=== PATIENT | female | born 1985 ===

== ENCOUNTER 2019-10-19 11:08 | Outpatient (CLI) | payer BC, OTHER ==
[~2019-10-19] VITALS: Ht 160 cm; Wt 100.0 kg
[2019-10-19 11:57] LABS: BASOPHILS # (AUTO) 0.01 x10^3/uL (0-0.1); BASOPHILS % (AUTO) 0 % (0-1); EOSINOPHILS # (AUTO) 0.06 x10^3/uL (0-0.4); EOSINOPHILS % (AUTO) 1 % (1-7); LYMPHOCYTES # (AUTO) 1.66 x10^3/uL (1-3.4); LYMPHOCYTES % (AUTO) 18 % (22-44); MD NO; MEAN CORPUSCULAR HEMOGLOBIN 29.4 pg (27.0-34.8); MEAN CORPUSCULAR VOLUME 89.1 fL (80-100); MONOCYTES # (AUTO) 0.69 x10^3/uL (0.2-0.8); MONOCYTES % (AUTO) 8 % (2-9); NEUTROPHILS # (AUTO) 6.84 x10^3/uL (1.8-6.8); NEUTROPHILS % (AUTO) 74 % (42-75); PLATELET COUNT 242 x10^3/uL (130-400); RED BLOOD COUNT 4.26 x10^6/uL (3.82-5.3); RED CELL DISTRIBUTION WIDTH 17.3 % (9.6-15.2)
[2019-10-19 12:08] LABS: ALANINE AMINOTRANSFERASE 23 U/L (12-78); ALBUMIN 2.3 g/dL (3.4-5.0); ANION GAP 8 mmol/L (5-15); CALCIUM 8.7 mg/dL (8.5-10.1); CHLORIDE 108 mmol/L (98-107); CREATININE 0.63 mg/dL (0.55-1.02)
[2019-10-19 12:10] LABS: ALKALINE PHOSPHATASE 182 U/L (45-117); BILIRUBIN,TOTAL 0.4 mg/dL (0.2-1.0); TOTAL PROTEIN 6.5 g/dL (6.4-8.2)
[2019-10-19 12:29] LABS: MICROSCOPIC INDICATED
[2019-10-19 12:31] LABS: CREATININE,URINE RANDOM 27.8 mg/dL
== END 2019-10-19 13:22 | disposition home or self-care (01) ==
LOC: LDOP 11:08
PROVIDERS: ATTEND Obstetrics & Gynecology
DX: O16.3 Unspecified maternal hypertension, third trimester (principal); Z3A.37 37 weeks gestation of pregnancy
CPT/HCPCS: 36415; 59025; 80053; 81001; 82570; 84156; 84550; 85025; 86900; 87086

== ENCOUNTER 2019-10-20 13:21 | Inpatient (IN) | payer BC ==
[~2019-10-20] VITALS: Ht 160 cm; Wt 100.0 kg
[2019-10-20] MEDS: D5%-LACTATED RINGERS 1,000 ML IV SCH ×2 (15:08→23:08)
[2019-10-20] MEDS ORDERED: OXYTOCIN 30U/ 0.9% NaCL 500ML 500 ML IV PRN (15:08)
[2019-10-20] MEDS ORDERED: OXYTOCIN 30U/ 0.9% NaCL 500ML 500 ML IV ONE (15:08)
[2019-10-20] MEDS ORDERED: LIDOCAINE 1%, 20ML ONE ×2 (15:13→15:24)
[2019-10-20] MEDS ORDERED: MISOPROSTOL 200 MCG TABLET ONE ×2 (15:13→15:24)
[2019-10-20] MEDS ORDERED: NEWBORN KIT ONE (15:13)
[2019-10-20] MEDS ORDERED: OXYTOCIN 30U/ 0.9% NaCL 500ML 500 ML ONE (15:13)
[2019-10-20] MEDS ORDERED: MISOPROSTOL 25 MCG TABLET ONE ×2 (15:24→23:11)
[2019-10-20] MEDS ORDERED: ONDANSETRON 2MG/ML, 2ML IVPush PRN (15:30)
[2019-10-20] MEDS ORDERED: CALCIUM CARBONATE 500 MG TAB.CHEW PO PRN (15:30)
[2019-10-20] MEDS ORDERED: SODIUM CHLORIDE FLUSH 10ML SYR IVF PRN (15:30)
[2019-10-20] MEDS ORDERED: TERBUTALINE 1 MG/ML, 1ML SQ PRN (15:30)
[2019-10-20] MEDS ORDERED: SODIUM CITRATE/CITRIC ACID 30 ML UDC PO PRN (15:30)
[2019-10-20] MEDS ORDERED: TERBUTALINE 1 MG/ML, 1ML IVPush PRN (15:30)
[2019-10-20] MEDS ORDERED: ALUMINUM/MAG/SIMETHICONE 30 ML UDC PO PRN (15:30)
[2019-10-20] MEDS ORDERED: METOCLOPRAMIDE 5 MG/ML, 2ML IVPush PRN (15:30)
[2019-10-20] MEDS: LACTATED RINGERS 1,000 ML IV SCH ×2 (17:15→23:12)
[2019-10-20 17:54] LABS: ALBUMIN 2.4 g/dL (3.4-5.0); ANION GAP 11 mmol/L (5-15); CALCIUM 9.3 mg/dL (8.5-10.1); CHLORIDE 108 mmol/L (98-107)
[2019-10-20 18:02] LABS: ALANINE AMINOTRANSFERASE 26 U/L (12-78); ALKALINE PHOSPHATASE 192 U/L (45-117); BILIRUBIN, DIRECT 0.1 mg/dL (0.1-0.2); BILIRUBIN,TOTAL 0.5 mg/dL (0.2-1.0); CREATININE 0.66 mg/dL (0.55-1.02); TOTAL PROTEIN 6.7 g/dL (6.4-8.2)
[2019-10-20 18:18] LABS: BASOPHILS # (AUTO) 0.04 x10^3/uL (0-0.1); BASOPHILS % (AUTO) 0 % (0-1); EOSINOPHILS # (AUTO) 0.04 x10^3/uL (0-0.4); EOSINOPHILS % (AUTO) 0 % (1-7); LYMPHOCYTES # (AUTO) 1.82 x10^3/uL (1-3.4); LYMPHOCYTES % (AUTO) 18 % (22-44); MD NO; MEAN CORPUSCULAR HEMOGLOBIN 29.9 pg (27.0-34.8); MEAN CORPUSCULAR HGB CONC 33.3 g/dL (32.4-35.8); MEAN CORPUSCULAR VOLUME 89.9 fL (80-100); MONOCYTES # (AUTO) 0.65 x10^3/uL (0.2-0.8); MONOCYTES % (AUTO) 6 % (2-9); NEUTROPHILS # (AUTO) 7.67 x10^3/uL (1.8-6.8); NEUTROPHILS % (AUTO) 75 % (42-75); PLATELET COUNT 244 x10^3/uL (130-400); RED BLOOD COUNT 4.46 x10^6/uL (3.82-5.3); RED CELL DISTRIBUTION WIDTH 17.1 % (9.6-15.2)
[2019-10-20] MEDS: MISOPROSTOL 25 MCG TABLET VG PRN ×2 (19:05→23:12)
[2019-10-20 20:16] VITALS: BP 147/76
[2019-10-21] MEDS ORDERED: MISOPROSTOL 25 MCG TABLET ONE (03:03)
[2019-10-21] MEDS: MISOPROSTOL 25 MCG TABLET VG PRN (03:10)
[2019-10-21 03:28] VITALS: BP 139/76
[2019-10-21] MEDS ORDERED: FENTANYL PF 100 MCG/2ML ONE (05:25)
[2019-10-21] MEDS: FENTANYL PF 100 MCG/2ML IVPush PRN ×2 (05:28→07:05)
[2019-10-21] MEDS: LACTATED RINGERS 1,000 ML IV SCH ×2 (06:32→07:27)
[2019-10-21] MEDS ORDERED: FENTANYL/BUPIV./NS/PF 250 ML EPIDCONT SCH (07:27)
[2019-10-21] MEDS ORDERED: LACTATED RINGERS 1,000 ML IV SCH (07:27)
[2019-10-21] MEDS ORDERED: FENTANYL/BUPIV./NS/PF 250 ML EPIDCONT ONE (07:29)
[2019-10-21] MEDS ORDERED: BUPIVACAINE 0.25% ONE (07:30)
[2019-10-21] MEDS ORDERED: NALOXONE 0.4 MG/ML, 1ML IVPush PRN (07:30)
[2019-10-21] MEDS ORDERED: LACTATED RINGERS 1,000 ML IVBOLUS PRN (07:30)
[2019-10-21] MEDS ORDERED: EPHEDRINE 50 MG/ML, 1ML IVPush PRN (07:30)
[2019-10-21] MEDS: D5%-LACTATED RINGERS 1,000 ML IV SCH (09:38)
[2019-10-21] MEDS ORDERED: MISOPROSTOL 200 MCG TABLET PR PRN (12:30)
[2019-10-21] MEDS ORDERED: DOCUSATE 100 MG CAPSULE PO PRN (12:30)
[2019-10-21] MEDS ORDERED: OXYcodone/APAP 5/325MG TABLET PO PRN ×2 (12:30)
[2019-10-21] MEDS ORDERED: CALCIUM CARBONATE 500 MG TAB.CHEW PO PRN (12:30)
[2019-10-21] MEDS ORDERED: ONDANSETRON 2MG/ML, 2ML IV PRN (12:30)
[2019-10-21] MEDS ORDERED: SIMETHICONE 80 MG CHEW TAB PO PRN (12:30)
[2019-10-21] MEDS ORDERED: MISOPROSTOL 200 MCG TABLET PR ONE ×2 (12:30)
[2019-10-21] MEDS ORDERED: OXYTOCIN 30U/ 0.9% NaCL 500ML 500 ML ONE (13:02)
[2019-10-21] MEDS: OXYTOCIN 30U/ 0.9% NaCL 500ML 500 ML IV SCH ×2 (13:19→22:24)
[2019-10-21 14:45] VITALS: BP 126/74
[2019-10-21] MEDS: IBUPROFEN 600 MG TABLET PO PRN ×2 (16:15→22:13)
[2019-10-21 19:15] VITALS: BP 131/78
[2019-10-21 20:18] LABS: MEAN CORPUSCULAR HEMOGLOBIN 29.3 pg (27.0-34.8); MEAN CORPUSCULAR HGB CONC 32.7 g/dL (32.4-35.8); MEAN CORPUSCULAR VOLUME 89.6 fL (80-100); MEAN PLATELET VOLUME 8.8 fL (7.4-10.4); PLATELET COUNT 202 x10^3/uL (130-400); RED CELL DISTRIBUTION WIDTH 16.9 % (9.6-15.2)
[2019-10-21 20:43] LABS: BASOPHILS # (AUTO) 0.03 x10^3/uL (0-0.1); BASOPHILS % (AUTO) 0 % (0-1); EOSINOPHILS % (AUTO) 0 % (1-7); LYMPHOCYTES # (AUTO) 1.54 x10^3/uL (1-3.4); LYMPHOCYTES % (AUTO) 11 % (22-44); MD SCAN; MONOCYTES # (AUTO) 0.79 x10^3/uL (0.2-0.8); MONOCYTES % (AUTO) 6 % (2-9); NEUTROPHILS % (AUTO) 84 % (42-75)
[2019-10-21 23:45] VITALS: BP 122/73
[2019-10-22 04:30] VITALS: BP 127/82
[2019-10-22] MEDS: IBUPROFEN 600 MG TABLET PO PRN ×4 (04:57→22:53)
[2019-10-22 08:00] VITALS: BP 133/85
[2019-10-22] MEDS: OXYTOCIN 30U/ 0.9% NaCL 500ML 500 ML IV SCH ×2 (08:24→18:24)
[2019-10-22] MEDS: PRENATAL VIT/IRON/FA 1 EACH TABLET PO SCH (10:20)
[2019-10-22 20:10] VITALS: BP 136/84
[2019-10-23 02:12] VITALS: BP 119/76
[2019-10-23] MEDS: OXYTOCIN 30U/ 0.9% NaCL 500ML 500 ML IV SCH (04:24)
[2019-10-23] MEDS: IBUPROFEN 600 MG TABLET PO PRN ×2 (05:35→11:04)
[2019-10-23 09:00] VITALS: BP 129/81
[2019-10-23] MEDS ORDERED: DOCU-131 PO (10:41)
[2019-10-23] MEDS ORDERED: IBUP-1222 PO (10:41)
[2019-10-23] MEDS: PRENATAL VIT/IRON/FA 1 EACH TABLET PO SCH (11:03)
== END 2019-10-23 12:15 | disposition home or self-care (01) | DRG 807 ==
LOC: LDOP 13:21 → LDIP 15:14 → 2NW 10-21 14:34
PROVIDERS: ADMIT Obstetrics & Gynecology; ATTEND Obstetrics & Gynecology
PROC: 10E0XZZ Delivery of Products of Conception, External Approach (ICD-10-PCS; principal; 2019-10-21)
PROC: 0KQM0ZZ Repair Perineum Muscle, Open Approach (ICD-10-PCS; 2019-10-21)
PROC: 3E0R3BZ Introduction of Anesthetic Agent into Spinal Canal, Percutaneous Approach (ICD-10-PCS; 2019-10-21)
PROC: 00HU33Z Insertion of Infusion Device into Spinal Canal, Percutaneous Approach (ICD-10-PCS; 2019-10-21)
DX: O69.81X0 Labor and delivery complicated by cord around neck, without compression, not applicable or unspecified (principal); Z37.1 Single stillbirth; O14.04 Mild to moderate pre-eclampsia, complicating childbirth; O70.1 Second degree perineal laceration during delivery; Z3A.37 37 weeks gestation of pregnancy; Z90.49 Acquired absence of other specified parts of digestive tract
CPT/HCPCS: 36415; J7121; 80053; 82248; 84550; 85025; 86592; 86850; 86870; 86900; 86922; 86923; 87635; G0378; J3010; J3490; J2590; J7120